=== PATIENT | male | born 1950 | race African-American/Black ===

== ENCOUNTER 2025-02-12 22:49 | Observation (INO) | payer MEDICARE, OTHER ==
[2025-02-12 23:00] VITALS: TEMP 97.6
--- NOTE | 2025-02-12 23:10 | ED ---
General Adult HPI - General Chief complaint: Syncope Stated complaint: Near Syncope Time Seen by Provider: 02/12/25 22:51 Source: EMS Mode of arrival: EMS Limitations: no limitations - History of Present Illness Initial comments: This patient is 74-year-old man who presents with complaint that he feels dehydrated. He is currently at the [facility] where he states he has not been able to eat or drink anything for 2 to 3 days now. The patient states that tonight he started feeling like he was going to pass out. The staff at the [facility] noted that his heart rate was up to 145, and EMS was called to bring him here for evaluation. The patient denies chest pain, dyspnea, diaphoresis, or other associated symptoms. The patient here does state that he would like to try eating something. He is not having abdominal pain, nausea or vomiting. Onset/Timin -: hour(s) Severity scale (1-10): 0 Consistency: now resolved Improves with: none Worsens with: movement Associated Symptoms: headaches Treatments Prior to Arrival: none - Related Data Allergies Allergy/AdvReac Type Severity Reaction Status Date / Time chlorpromazine Allergy Swelling Verified 02/12/25 22:58 [From Thorazine] prochlorperazine Allergy Swelling Verified 02/12/25 22:58 [From Compazine] Review of Systems ROS Statement: Those systems with pertinent positive or pertinent negative responses have been documented in the HPI. ROS Other: All systems not noted in ROS Statement are negative. Constitutional: Denies: fever, chills, weakness Eyes: Denies: vision change Respiratory: Denies: cough, dyspnea Cardiovascular: Reports: palpitations, syncope (Near syncopal episode). Denies: chest pain, orthopnea, edema Gastrointestinal: Denies: abdominal pain, nausea, vomiting, diarrhea Genitourinary: Denies: dysuria, hematuria Musculoskeletal: Denies: back pain Skin: Denies: rash Neurological: Reports: headache. Denies: weakness, numbness, paresthesias Past Medical History Past Medical History: No Reported History History of Any Multi-Drug Resistant Organisms: None Reported Past Surgical History: No Surgical Hx Reported Smoking Status: Former smoker Past Alcohol Use History: None Reported Past Drug Use History: None Reported General Exam Limitations: no limitations General appearance: alert, in no apparent distress Head exam: Present: atraumatic, normocephalic Eye exam: Present: normal appearance. Absent: scleral icterus, conjunctival i njection ENT exam: Present: normal oropharynx Neck exam: Present: normal inspection Respiratory exam: Present: normal lung sounds bilaterally. Absent: respiratory distress, wheezes, rales, rhonchi, stridor, accessory muscle use Cardiovascular Exam: Present: regular rate, normal rhythm, normal heart sounds. Absent: systolic murmur, diastolic murmur, rubs, gallop GI/Abdominal exam: Present: soft. Absent: distended, tenderness, guarding, rebound, rigid, mass Extremities exam: Present: normal inspection, normal capillary refill. Absent: pedal edema, calf tenderness Back exam: Present: normal inspection. Absent: CVA tenderness (R), CVA tenderness (L) Neurological exam: Present: alert, oriented X3, CN II-XII intact. Absent: motor sensory deficit Skin exam: Present: warm, dry, intact, normal color. Absent: rash Course Vital Signs 02/12/25 02/12/25 02/13/25 22:51 23:42 00:40 Temperature 97.6 F Pulse Rate 86 74 67 Respiratory 18 16 18 Rate Blood Pressure 142/102 132/91 132/91 O2 Sat by Pulse 96 96 95 Oximetry 02/13/25 02/13/25 03:34 06:14 Temperature Pulse Rate 65 64 Respiratory 16 18 Rate Blood Pressure 113/87 130/71 O2 Sat by Pulse 97 98 Oximetry EKG Findings - EKG Results: EKG: interpreted by ERMD, normal QRS EKG shows: atrial fibrillation (Rate 84 bpm) - Blocks, [place], Hypertrophy, ST Abn: QRS axis and voltage: left axis deviation (-30 to -90) Repolarization changes or abnormalities: ST or T wave suggestive of ischemia (Possible lateral ischemia) Medical Decision Making - Medical Decision Making The patient had chest x-ray that I interpreted as negative for acute infiltrate, pneumothorax, congestive heart failure. I did further discuss the patient's case with nurse Enrico from the [facility] who did verify that he had found a heart rate of 145 and low pulse oximetry readings and therefore had sent the patient here. Patient does not have documented history of atrial fibrillation although he states he was told he had irregular heartbeat once before but was never started on any medication for this. In light of this the patient will be started on low-dose of Cardizem, orally for rate control and also Eliquis for anticoagulant, admitted to have cardiology consultation and to recheck creatinine after hydration. - Lab Data Result diagrams: 02/12/25 23:41 02/12/25 23:41 Lab Results 02/12/25 02/12/25 02/12/25 Range/Units 23:41 23:41 23:41 WBC 4.56 (4.50-10.00) 10*3/uL RBC 4.74 (4.40-5.60) 10*6/uL Hgb 15.2 (13.0-17.0) g/dL Hct 45.3 (39.6-50.0) % MCV 95.6 (80.0-97.0) fL MCH 32.1 H (27.0-32.0) pg MCHC 33.6 (32.0-37.0) g/dL Plt Count 184 (140-440) 10*3/uL MPV 11.0 (9.5-12.2) fL Immature Gran % (Auto) 0.7 % Neutrophils % 48.8 % Lymphocytes % 37.1 % Monocytes % 11.0 % Eosinophils % 1.1 % Basophils % 1.3 % Immature Gran # 0.03 (0.00-0.04) 10*3/uL Neutrophils # 2.23 (1.80-7.70) 10*3/uL Lymphocytes # 1.69 (0.90-5.00) 10*3/uL Monocytes # 0.50 (0.20-1.00) 10*3/uL Eosinophils # 0.05 (0.04-0.35) 10*3/uL Basophils # 0.06 (0.00-0.10) 10*3/uL PT 11.1 (10.0-12.5) sec INR 1.0 (<1.2) APTT 24.9 (22.0-30.0) sec Sodium 134 L (137-145) mmol/L Potassium 3.8 (3.5-5.1) mmol/L Chloride 98 (98-107) mmol/L Carbon Dioxide 26 (22-30) mmol/L Anion Gap 10 mmol/L BUN 21 H (9-20) mg/dL Creatinine 1.72 H (0.66-1.25) mg/dL Est GFR (CKD-EPI)AfAm 45 (>60 ml/min/1.73 sqM) Est GFR (CKD-EPI)NonAf 39 (>60 ml/min/1.73 sqM) Glucose 97 (74-99) mg/dL Calcium 9.2 (8.4-10.2) mg/dL Magnesium 2.5 H (1.6-2.3) mg/dL Total Bilirubin 0.7 (0.2-1.3) mg/dL AST 35 (17-59) U/L ALT 23 (4-49) U/L Alkaline Phosphatase 62 (38-126) U/L Troponin I (0.000-0.034) ng/mL Total Protein 8.1 (6.3-8.2) g/dL Albumin 4.3 (3.5-5.0) g/dL 02/12/25 Range/Units 23:41 WBC (4.50-10.00) 10*3/uL RBC (4.40-5.60) 10*6/uL Hgb (13.0-17.0) g/dL Hct (39.6-50.0) % MCV (80.0-97.0) fL MCH (27.0-32.0) pg MCHC (32.0-37.0) g/dL Plt Count (140-440) 10*3/uL MPV (9.5-12.2) fL Immature Gran % (Auto) % Neutrophils % % Lymphocytes % % Monocytes % % Eosinophils % % Basophils % % Immature Gran # (0.00-0.04) 10*3/uL Neutrophils # (1.80-7.70) 10*3/uL Lymphocytes # (0.90-5.00) 10*3/uL Monocytes # (0.20-1.00) 10*3/uL Eosinophils # (0.04-0.35) 10*3/uL Basophils # (0.00-0.10) 10*3/uL PT (10.0-12.5) sec INR (<1.2) APTT (22.0-30.0) sec Sodium (137-145) mmol/L Potassium (3.5-5.1) mmol/L Chloride (98-107) mmol/L Carbon Dioxide (22-30) mmol/L Anion Gap mmol/L BUN (9-20) mg/dL Creatinine (0.66-1.25) mg/dL Est GFR (CKD-EPI)AfAm (>60 ml/min/1.73 sqM) Est GFR (CKD-EPI)NonAf (>60 ml/min/1.73 sqM) Glucose (74-99) mg/dL Calcium (8.4-10.2) mg/dL Magnesium (1.6-2.3) mg/dL Total Bilirubin (0.2-1.3) mg/dL AST (17-59) U/L ALT (4-49) U/L Alkaline Phosphatase (38-126) U/L Troponin I <0.012 (0.000-0.034) ng/mL Total Protein (6.3-8.2) g/dL Albumin (3.5-5.0) g/dL Disposition Clinical Impression: Dehydration, Atrial fibrillation, Acute kidney injury Disposition: ADMITTED IP TO [facility] Condition: Good Is patient prescribed a controlled substance at d/c from ED?: No
--- NOTE | 2025-02-12 23:41 | XR ---
EXAMINATION TYPE: XR chest 1V portable DATE OF EXAM: 02/12/2025 11:27 PM COMPARISON: None. CLINICAL INDICATION: Male, 74 years old with history of near syncope, tachycardia TECHNIQUE: XR chest 1V portable view(s) obtained. FINDINGS: The heart size is normal. The pulmonary vasculature is normal. The lungs are clear. IMPRESSION: 1. No acute pulmonary process. [facility], Workstation: [facility], 02/12/2025 11:38 PM
[2025-02-12] MEDS: SODIUM CHLORIDE 0.9% 1,000 ML IV STA (23:43)
[2025-02-12 23:51] LABS: Basophils # (A) 0.06 10*3/uL (0.00-0.10); Basophils % (A) 1.3 %; Eosinophils # (A) 0.05 10*3/uL (0.04-0.35); Eosinophils % (A) 1.1 %; HCT 45.3 % (39.6-50.0); HGB 15.2 g/dL (13.0-17.0); Lymphocytes # (A) 1.69 10*3/uL (0.90-5.00); Lymphocytes % (A) 37.1 %; MCH 32.1 pg (27.0-32.0); MCHC 33.6 g/dL (32.0-37.0); MCV 95.6 fL (80.0-97.0); Neutrophils # (A) 2.23 10*3/uL (1.80-7.70); Neutrophils % (A) 48.8 %; Platelet Count 184 10*3/uL (140-440); RBC 4.74 10*6/uL (4.40-5.60); RDW 13.2 % (11.5-14.5); WBC 4.56 10*3/uL (4.50-10.00)
[2025-02-13 00:10] LABS: Partial Thromboplastin Time 24.9 sec (22.0-30.0); Prothrombin Time 11.1 sec (10.0-12.5)
[2025-02-13 00:16] LABS: ALT 23 U/L (4-49); AST 35 U/L (17-59); African American GFR (CKD) 45 (>60 ml/min/1.73 sqM); Albumin 4.3 g/dL (3.5-5.0); Alkaline Phosphatase 62 U/L (38-126); Anion Gap 10 mmol/L; Blood Urea Nitrogen 21 mg/dL (9-20); Calcium 9.2 mg/dL (8.4-10.2); Carbon Dioxide 26 mmol/L (22-30); Chloride 98 mmol/L (98-107); Glucose 97 mg/dL (74-99); Magnesium 2.5 mg/dL (1.6-2.3); Non-African American GFR(CKD) 39 (>60 ml/min/1.73 sqM); Potassium 3.8 mmol/L (3.5-5.1); Sodium 134 mmol/L (137-145); Total Bilirubin 0.7 mg/dL (0.2-1.3); Total Protein 8.1 g/dL (6.3-8.2)
[2025-02-13] MEDS: SODIUM CHLORIDE 0.9% 1,000 ML IV ONE (00:39)
[2025-02-13] MEDS ORDERED: NITROGLYCERIN SL TABS 0.4 MG TAB SUBLINGUAL PRN (01:16)
[2025-02-13] MEDS: DILTIAZEM ORAL 30 MG TAB PO STA (01:17)
[2025-02-13] MEDS: APIXABAN 2.5 MG TABLET PO SCH (01:17)
[2025-02-13] MEDS ORDERED: ACETAMINOPHEN TAB 325 MG TAB PO PRN (01:58)
--- NOTE | 2025-02-13 02:08 | P.HPIM ---
History of Present Illness H&P Date: 02/13/25 History of present illness; Patient is a 74-year-old male who presents with dehydration and fall Patient is a resident of [facility]. He states has not been able to eat or drink well for the last 2 or 3 days. He states that he has generally felt weak and has had a lack of appetite. He did have 1 fall without loss of consciousness, no head trauma noted. The staff at the [facility]way noted that his heart rate was up to 145. He has had no previous similar symptoms. The patient denies chest pain, dyspnea, diaphoresis, or other associated symptoms. Denies cough, shortness of breath, abdominal pain, nausea, vomiting, dizziness, and dysuria. Spoke with the ER physician, patient admission was accepted by internal medicine service for treatment. REVIEW OF SYSTEMS: Pertinent positives and negatives noted in HPI. PHYSICAL EXAMINATION: Vitals reviewed GENERAL: Resting comfortably in bed. EYES: PERRL, no scleral injection or icterus. No vision loss HENT: Normocephalic, atraumatic, hearing grossly intact, moist mucous membranes NECK: No tracheal deviation, full range of motion. CARDIOVASCULAR: S1 and S2 present. Irregular rhythm. No murmurs, rubs, or gallops. PULMONARY: Chest is clear to auscultation, no wheezing, rhonchi, or crackles. ABDOMEN: Soft, nontender, nondistended. No palpable organomegaly. MUSCULOSKELETAL: No apparent joint swelling and deformities. EXTREMITIES: No apparent cyanosis, clubbing. No pedal edema. NEUROLOGICAL: Alert and oriented. Gross neurological examination with no apparent focal deficits. SKIN: No apparent rashes. ER FINDINGS: Labs significant for sodium 134, BUN 21, creatinine 1.72, magnesium 2.5, troponin negative EKG independently interpreted showed atrial fibrillation heart, with left axis deviation, rate of 84. Chest x-ray done independently interpreted showed no acute cardiopulmonary process. Assessment and Plan: In summary, patient is a 74-year-old male who presents with dehydration and fall. # New onset atrial fibrillation with RVR, potentially due to malnutrition #Fall Afebrile, chest x-ray unremarkable, no chest pain Rate noted to be as high as 145 bpm, currently controlled Continuous cardiac monitoring, goal rate <110 bpm - TSH ordered - Echocardiogram ordered Given Cardizem 30 mg once - Begin Eliquis 2.5mg BID Cardiology consulted #XIAO versus CKD, possibly due to dehydration Given 2 L NS - continue IVF UA ordered Monitor BMP No known medical history DVT ppx: Eliquis 2.5 twice daily Code status: Full code F: P.o. E: Replete as needed N: Heart healthy diet A: Ambulatory Anticipated discharge place: [facility] Anticipated discharge time: 1 to 2 days Dictation was produced using [employer] dictation software. Please excuse any grammatical, word or spelling errors. I saw and evaluated the patient during the peñaloza and critical portions of this encounter, and discussed the case in detail with the resident author of this note, I agree with the Assessment and Plan, and my changes, if any, are highlighted in blue. Past Medical History Past Medical History: No Reported History History of Any Multi-Drug Resistant Organisms: None Reported Past Surgical History: No Surgical Hx Reported Smoking Status: Former smoker Past Alcohol Use History: None Reported Past Drug Use History: None Reported Medications and Allergies Allergies Allergy/AdvReac Type Severity Reaction Status Date / Time chlorpromazine Allergy Swelling Verified 02/12/25 22:58 [From Thorazine] prochlorperazine Allergy Swelling Verified 02/12/25 22:58 [From Compazine] Physical Exam Osteopathic Statement: *. No significant issues noted on an osteopathic structural exam other than those noted in the History and Physical/Consult. Vitals: Vital Signs Temp Pulse Resp BP Pulse Ox 02/13/25 00:40 67 18 132/91 95 02/12/25 23:42 74 16 132/91 96 02/12/25 22:51 97.6 F 86 18 142/102 96 Intake and Output 02/12/25 02/12/25 02/13/25 14:59 22:59 06:59 Other: Weight 78.471 kg Results CBC & Chem 7: 02/12/25 23:41 02/12/25 23:41 Labs: Abnormal Lab Results - Last 24 Hours (Table) 02/12/25 02/12/25 Range/Units 23:41 23:41 MCH 32.1 H (27.0-32.0) pg Sodium 134 L (137-145) mmol/L BUN 21 H (9-20) mg/dL Creatinine 1.72 H (0.66-1.25) mg/dL Magnesium 2.5 H (1.6-2.3) mg/dL
[2025-02-13 02:14] LABS: Appearance,Urine Clear (Clear); Bilirubin,Urine Negative (Negative); Blood,Urine Negative (Negative); Color,Urine Yellow; Glucose,Urine (UA) Negative (Negative); Ketones,Urine Negative (Negative); Leukocyte Esterase,Urine Negative (Negative); Nitrite,Urine Negative (Negative); Protein,Urine Trace (Negative); Specific Gravity,Urine 1.022 (1.001-1.035); Urobilinogen,Urine <2.0 mg/dL (<2.0)
[2025-02-13] MEDS: SODIUM CHLORIDE 0.9% 1,000 ML IV SCH (03:47)
[2025-02-13] MEDS ORDERED: METOPROLOL TARTRATE 25 MG TAB PO SCH (10:15)
[2025-02-13 10:26] VITALS: BP 128/80; PULSE 68; RESP 16
[2025-02-13] MEDS: APIXABAN 5 MG TAB PO SCH (10:26)
[2025-02-13] MEDS: METOPROLOL TARTRATE 25 MG TAB PO SCH (10:26)
--- NOTE | 2025-02-13 10:35 | CA ---
Transthoracic Echo Report Name: Gadiel Bradshaw Age: 74 Gender: M : 1950 Exam Date: 02/13/2025 09:07 Exam Location: [facility] Ht (in): 73 Wt (lb): 173 Ordering Physician: Catalino Beasley MD Attending/Referring Phys: Digital Advisor Clementina Garcia RDCS Procedure CPT: Indications: afib new onset Cardiac Hx: Technical Quality: Fair Contrast 1: Total Dose (mL): Contrast 2: Total Dose (mL): MEASUREMENTS (Male / Female) Normal Values 2D ECHO LV Diastolic Diameter PLAX 3.3 cm 4.2 - 5.9 / 3.9 - 5.3 cm LV Systolic Diameter PLAX 1.8 cm IVS Diastolic Thickness 1.1 cm 0.6 - 1.0 / 0.6 - 0.9 cm LVPW Diastolic Thickness 1.0 cm 0.6 - 1.0 / 0.6 - 0.9 cm LV Relative Wall Thickness 0.6 RV Internal Dim ED PLAX 2.1 cm LA Systolic Diameter LX 3.6 cm 3.0 - 4.0 / 2.7 - 3.8 cm LV Diastolic Volume MOD BP 53.9 cm??? 67 - 155 / 56 - 104 cm??? LV Systolic Volume MOD BP 24.5 cm??? 22 - 58 / 19 - 49 cm??? LV Ejection Fraction MOD BP 54.5 % >= 55 % LV Cardiac Index MOD BP 1112.0 cm???/min???m??? LV Diastolic Volume MOD 4C 66.9 cm??? LV Systolic Volume MOD 4C 30.6 cm??? LV Ejection Fraction MOD 4C 54.3 % LV Cardiac Index MOD 4C 1375.0 cm???/min???m??? LV Diastolic Length 4C 6.9 cm LV Systolic Length 4C 6.0 cm LV Diastolic Volume MOD 2C 43.3 cm??? LV Systolic Volume MOD 2C 19.1 cm??? LV Ejection Fraction MOD 2C 55.9 % LV Cardiac Index MOD 2C 914.7 cm???/min???m??? LV Diastolic Length 2C 6.9 cm LV Systolic Length 2C 6.2 cm LA Volume 41.4 cm??? 18 - 58 / 22 - 52 cm??? LA Volume Index 20.6 cm???/m??? 16 - 28 cm???/m??? M-MODE Aortic Root Diameter MM 3.3 cm LA Systolic Diameter MM 4.6 cm LA Ao Ratio MM 1.4 AV Cusp Separation MM 2.0 cm DOPPLER MV Area PHT 3.8 cm??? Mitral E Point Velocity 86.9 cm/s Mitral A Point Velocity 0.4 cm/s Mitral E to A Ratio 198.8 MV Deceleration Time 202.0 ms TR Peak Velocity 205.0 cm/s TR Peak Gradient 16.8 mmHg FINDINGS Left Ventricle Left ventricular ejection fraction is estimated at 50-55 %. Mildly increased septal wall thickness. Normal left ventricular systolic function with no obvious regional wall motion abnormalities. Left ventricular cavity size normal. Right Ventricle Normal right ventricular size and function. Right ventricular systolic pressure within normal limits. Right Atrium Normal right atrial size. Left Atrium Normal left atrial size. Mitral Valve Structurally normal mitral valve. Mild mitral regurgitation. No mitral stenosis. Aortic Valve Trileaflet aortic valve. No aortic valve stenosis or regurgitation. Tricuspid Valve Structurally normal tricuspid valve. No tricuspid stenosis. Mild tricuspid regurgitation. Pulmonic Valve Structurally normal pulmonic valve. No pulmonic stenosis. Trace pulmonic regurgitation. Pericardium No pericardial or pleural effusion. Aorta Normal size aortic root and proximal ascending aorta. CONCLUSIONS Normal LV size and preserved systolic function ejection fraction of 50 to 55%. Mild mitral and tricuspid regurgitation. Patient is in atrial fibrillation. No pericardial effusion and no significant pulmonary hypertension Previewed by: Dr. Marly Steinberg MD (Electronically Signed) Final Date: 13 Feb 2025 10:35
[2025-02-13 10:41] LABS: BUN/Creat Ratio 14.36 Ratio (12.00-20.00); Blood Urea Nitrogen 20.1 mg/dL (9.0-27.0); Calcium 7.7 mg/dL (8.7-10.3); Carbon Dioxide 22.1 mmol/L (21.6-31.8); Chloride 106 mmol/L (96-109); Glucose 79 mg/dL (70-110); Magnesium 2.2 mg/dL (1.5-2.4); Potassium 4.2 mmol/L (3.5-5.5); Sodium 136 mmol/L (135-145)
--- NOTE | 2025-02-13 11:29 | P.CRDCN ---
History of Present Illness History of present illness: HISTORY OF PRESENT ILLNESS: This is a 74-year-old male with no significant past medical history. Patient does not follow with a extension educator. We have been asked to see the patient in consultation for new onset atrial fibrillation. Patient examined at the bedside. Patient presented from the [facility] due to tachycardia and presyncope. Patient was found to be in atrial fibrillation. The patient states he does have a history of an irregular heart rhythm but is unsure if it is atrial fibrillation. He does not take any medications on an outpatient basis. Patient remains in atrial fibrillation with controlled ventricular rate at the time of examination. No complaints of chest pain or shortness of breath. DIAGNOSTICS: - EKG reveals atrial fibrillation with controlled ventricular rate. - Chest xray negative for acute process. - Laboratory data: WBC 4.56. Hemoglobin 15.2. Platelet count 184. Sodium 134. Potassium 3.8. BUN 21. Creatinine 1.72. Troponin negative x 1 - Current home cardiac medications include none. - No previous echocardiogram, stress test, or cardiac catheterization available in EMR for review REVIEW OF SYSTEMS: At the time of my exam: CONSTITUTIONAL: Denies fever or chills. HEENT: Denies blurred vision, vision changes, or eye pain. Denies hemoptysis CARDIOVASCULAR: Denies chest pain. Denies orthopnea. Denies PND. Denies palpitations RESPIRATORY: Denies shortness of breath. GASTROINTESTINAL: Denies abdominal pain. Denies nausea or vomiting. HEMATOLOGIC: Denies bleeding disorders. GENITOURINARY: Denies any blood in urine. SKIN: Denies pruitis. Denies rash. PHYSICAL EXAM: VITAL SIGNS: Reviewed. GENERAL: Well-developed in no acute distress. HEENT: Head is normocephalic. Pupils are equal, round. Sclerae anicteric. Mucous membranes of the mouth are moist. Neck supple. No JVD or thyromegaly LUNGS: Respirations even and unlabored. Lungs essentially clear to auscultation bilaterally. HEART: Irregular rate and rhythm. S1 and S2 heard. ABDOMEN: Soft. Nondistended. Nontender. EXTREMITIES: Normal range of motion. No clubbing or cyanosis. Peripheral pulses intact. No lower extremity edema NEUROLOGIC: Awake and alert. Oriented x 3. ASSESSMENT: Presyncope Decreased oral intake x 2 to 3 days per patient New onset atrial fibrillation with controlled ventricular rate, duration unknown Acute kidney injury, baseline unknown Nicotine dependence, patient smokes half a pack per day PLAN: 2D echo obtained and reviewed. Echo revealing EF 50 to 55% with mild MR mild TR. TSH within normal limits at 3.120 Patient has been started on apixaban. Increase dosage to 5 mg twice daily for appropriate thromboembolic protection Add metoprolol tartrate 25 mg twice a day Patient is stable for discharge back to [facility] from a cardiac standpoint Nurse practitioner note has been reviewed by physician. Signing provider agrees with the documented findings, assessment, and plan of care documented by AUTOMATIC DRY STARCH OPERATOR as a scribe. Past Medical History Past Medical History: No Reported History History of Any Multi-Drug Resistant Organisms: None Reported Past Surgical History: No Surgical Hx Reported Smoking Status: Former smoker Past Alcohol Use History: None Reported Past Drug Use History: None Reported Medications and Allergies Home Medications Medication Instructions Recorded Confirmed Type No Known Home Medications 02/13/25 02/13/25 History Allergies Allergy/AdvReac Type Severity Reaction Status Date / Time chlorpromazine Allergy Swelling Verified 02/13/25 07:04 [From Thorazine] prochlorperazine Allergy Swelling Verified 02/13/25 07:04 [From Compazine] Physical Exam Vitals: Vital Signs Temp Pulse Resp BP Pulse Ox 02/13/25 06:14 64 18 130/71 98 02/13/25 03:34 65 16 113/87 97 02/13/25 00:40 67 18 132/91 95 02/12/25 23:42 74 16 132/91 96 02/12/25 22:51 97.6 F 86 18 142/102 96 Intake and Output 02/12/25 02/13/25 02/13/25 22:59 06:59 14:59 Other: Weight 78.471 kg Results 02/12/25 23:41 02/13/25 06:20 Cardiac Enzymes 02/12/25 02/12/25 Range/Units 23:41 23:41 AST 35 (17-59) U/L Troponin I <0.012 (0.000-0.034) ng/mL Coagulation 02/12/25 Range/Units 23:41 PT 11.1 (10.0-12.5) sec APTT 24.9 (22.0-30.0) sec CBC 02/12/25 Range/Units 23:41 WBC 4.56 (4.50-10.00) 10*3/uL RBC 4.74 (4.40-5.60) 10*6/uL Hgb 15.2 (13.0-17.0) g/dL Hct 45.3 (39.6-50.0) % Plt Count 184 (140-440) 10*3/uL Comprehensive Metabolic Panel 02/12/25 Range/Units 23:41 Sodium 134 L (137-145) mmol/L Potassium 3.8 (3.5-5.1) mmol/L Chloride 98 (98-107) mmol/L Carbon Dioxide 26 (22-30) mmol/L BUN 21 H (9-20) mg/dL Creatinine 1.72 H (0.66-1.25) mg/dL Glucose 97 (74-99) mg/dL Calcium 9.2 (8.4-10.2) mg/dL AST 35 (17-59) U/L ALT 23 (4-49) U/L Alkaline Phosphatase 62 (38-126) U/L Total Protein 8.1 (6.3-8.2) g/dL Albumin 4.3 (3.5-5.0) g/dL Current Medications Generic Name Dose Route Start Last Admin Trade Name Freq PRN Reason Stop Dose Admin Acetaminophen 650 mg 02/13/25 01:58 Acetaminophen Tab 325 Mg Tab PO Q4HR PRN Fever and/ or Pain Apixaban 2.5 mg 02/13/25 01:15 02/13/25 01:17 Apixaban 2.5 Mg Tablet PO 2.5 mg BID MAC Administration Protocol Aspirin 81 mg 02/14/25 09:00 Aspirin 81 Mg PO DAILY MAC Sodium Chloride 1,000 mls @ 75 mls/hr 02/13/25 02:15 02/13/25 03:47 Saline 0.9% IV 75 mls/hr .[id number] MAC Administration Nitroglycerin 0.4 mg 02/13/25 01:16 Nitroglycerin Sl Tabs 0.4 Mg Tab SUBLINGUAL Q5M PRN Chest Pain Sodium Chloride 10 ml 02/13/25 09:00 Sodium Chloride 0.9% Flush 10 Ml Syringe IV BID MAC Intake and Output 02/12/25 02/13/25 02/13/25 22:59 06:59 14:59 Other: Weight 78.471 kg 02/12/25 23:41 02/12/25 23:41
--- NOTE | 2025-02-13 13:47 | P.DS ---
Providers Date of admission: 02/13/25 01:18 Expected date of discharge: 02/13/25 Attending physician: Shae Álvarez MD Consults: 02/13/25 01:16 Consult Physician Routine Consulting Provider: Christian Hinds Consult Reason/Comments: New atrial fibrillation Do you want consulting provider notified?: Yes Primary care physician: Stated None Hospital Course: Discharge Diagnosis: New onset atrial fibrillation XIAO, secondary to dehydration resulting from reports of decreased appetite. Improved with IV fluid hydration. Hospital Course: Patient is a 74-year-old male who presented to the emergency department on 02/12/2025 via EMS in custody of [facility] officers from [facility] after reports of near syncopal episode/fall and found to have elevated heart rate of 145 bpm. Upon arrival to our facility, patient underwent evaluation in the emergency department. Vital signs on arrival show blood pressure 142/102, heart rate 86, respiratory rate 18, temp 97.6 F, and SpO2 of 96% on room air. EKG was completed showing atrial fibrillation with a controlled ventricular rate of 68 bpm and T wave inversion in lateral leads V5 and V6. Chest x-ray completed negative for acute cardiopulmonary process. Labs completed and reviewed. CBC showing elevated MCH of 32.1 otherwise normal findings. Coagulation profile normal findings. BMP showing hyponatremia with sodium of 134 and acute kidney injury with BUN of 21, creatinine 1.72, and GFR of 39. Magnesium elevated at 2.5. Liver profile unremarkable. Calcium normal findings at 9.2. Troponin was negative at less than 0.012. TSH normal findings at 3.120. Patient started on anticoagulation with Eliquis and admitted under our services with consultation to cardiology. Patient was provided with gentle IV fluid hydration overnight resulting in improvement of renal function to BUN of 20.1, creatinine 1.4, GFR increasing from 39-53. Patient reports now having a good appetite, had no further episodes of RVR since arrival to our facility. Echocardiogram was completed showing a preserved EF of 50 to 55% with mild mitral and tricuspid regurgitation. Patient remains in atrial fibrillation but with a controlled ventricular rate. He was evaluated by cardiology and in addition to anticoagulation with Eliquis cardiology also recommending discharge on metoprolol 25 mg twice daily and clearing patient from their perspective. Patient medically optimized at this time and is cleared to return to half-way in custody of [employer] officers. Prescription was sent to pharmacy in [employer] office that was provided with written prescription per their request. Patient to follow-up with [facility] medical clinic for posthospitalization follow-up and continued care. Physical exam: Vital signs reviewed and stable. General: Nontoxic, no distress and appears stated age. Derm: Skin warm and dry, normal coloration for ethnicity. Head: Atraumatic, normocephalic and symmetric. Eyes: EOM's intact, no lid lag, and anicteric sclera Mouth: no lip lesions, mucus membranes moist Cardiovascular: Irregularly irregular with normal S1S2, no murmur, positive posterior tibial pulses bilaterally, and cap refill < 2 seconds. Lungs: Respirations even, regular, and unlabored on room air. Lungs CTA bilaterally, no rhonchi, no rales, no wheezing, and no accessory muscle usage. Abdominal: soft, nontender to palpation, no guarding, no appreciable organomegaly Ext: ROM intact. No gross muscle atrophy, no edema, no contractures Neuro: Speech clear, face symmetrical and CN II-XII grossly intact with no noted focal neuro deficits Psych: Alert and oriented to person, place, time, and situation. Appropriate and pleasant affect. A total of 33 minutes of time were spent preparing this complex discharge summary. Pt was discharged on 02/13/25 at 1:46 PM Patient was seen independently by Nurse Practitioner. This document was prepared using [employer] dictation software. Please allow for errors in gravel weigher while rare they do occur. Romel White NP rendered care for this patient independently, reviewed the findings and plan as documented in the note above. I did not physically speak with or examine the patient on this date. Patient Condition at Discharge: Stable Plan - Discharge Summary New Discharge Prescriptions: New Metoprolol Tartrate [Lopressor] 25 mg PO BID 30 Days #60 tab Apixaban [Eliquis] 5 mg PO BID 30 Days #60 tab Discharge Medication List Apixaban [Eliquis] 5 mg PO BID 30 Days #60 tab 02/13/25 [Rx] Metoprolol Tartrate [Lopressor] 25 mg PO BID 30 Days #60 tab 02/13/25 [Rx] Patient Instructions/Handouts: Apixaban (By mouth), A-fib (Atrial Fibrillation) (DC) Activity/Diet/Wound Care/Special Instructions: Activity: As tolerated. Diet: Heart healthy and carb consistent diet. Recommend drinking 6 to 8 glasses of water daily to prevent recurrent episodes of dehydration. Special Instructions: Take all of your medications as directed and you will need to follow-up with [facility] medical clinic for posthospitalization follow-up evaluation by provider Thank you for allowing us to participate in your care, it was truly a pleasure having you for our patient!!! Discharge Disposition: DC/TRANSFER COURT/LAW
[2025-02-14] MEDS ORDERED: ASPIRIN 325 MG TAB PO SCH (09:00)
[2025-02-14] MEDS ORDERED: ASPIRIN 81 MG PO SCH (09:00)
== END 2025-02-13 14:30 ==
LOC: EC 22:49 → 6NMEDSUR 02-13 01:18
PROVIDERS: ADMIT Internal Medicine; ATTEND Internal Medicine
DX: I48.91 Unspecified atrial fibrillation (principal); N17.9 Acute kidney failure, unspecified; E86.0 Dehydration; E87.1 Hypo-osmolality and hyponatremia; F17.210 Nicotine dependence, cigarettes, uncomplicated; Z88.8 Allergy status to other drugs, medicaments and biological substances; W19.XXXA Unspecified fall, initial encounter
CPT/HCPCS: 96360; 96361; 99285; 36415; 93005; 93306; 80053; 80048; 84443; 83735 ×2; 84484; 85025; 85610; 85730; 81003; 71045; G0378